=== PATIENT | male | born 1995 | race Caucasian/White ===

== ENCOUNTER 2019-11-11 01:48 | Emergency (ER) | payer BC, OTHER, SELFPAY ==
--- NOTE | 2019-11-11 01:55 | DI.RAD.S_ITS ---
PROCEDURE: XR ELBOW LT MIN 3V INDICATIONS: elbow pain after skateboard crash TECHNIQUE: 3 views of the elbow were acquired. COMPARISON: None. FINDINGS: Bones: Comminuted fracture involving the lateral humeral epicondyle and capitellum. Soft tissues: Large joint effusion. No suspicious soft tissue calcifications. IMPRESSION: Comminuted lateral epicondyle/capitellum fracture. Dictated by: Rebeca Agustin MD, PhD on 11/11/2019 at 8:36 Approved by: Rebeca Agustin MD, PhD on 11/11/2019 at 8:40
[2019-11-11 01:56] VITALS: BP 128/78; PULSE 93; RESP 18; TEMP 37.6; O2SAT 100
--- NOTE | 2019-11-11 02:29 | ED_ITS ---
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 He denies any head neck or back pain. He was not wearing a helmet. He has full recall. He complains only of left elbow pain and significant increased pain with range of motion. He denies any numbness, tingling or weakness. He states his tetanus is current. MD complaint: injury to: left and elbow Onset (ago): hour(s) Other injuries: none Handedness: right Place: outdoors Severity: moderate Relieving factors: immobilization Exacerbating factors: movement of extremity Context: direct blow and sports-related injury Associated symptoms: denies other symptoms Related Data Previous Rx's Medication Instructions Recorded hydrocodone-acetaminophen 1 tab PO Q4-6H PRN #20 tab 11/11/19 Allergies Allergy/AdvReac Type Severity Reaction Status Date / Time Sulfa Allergy Intermediate EXTENSIVE Uncoded 07/30/17 11:56 BRUISES OVER BODY Review of Systems Constitutional Constitutional: Denies chills, Denies fatigue, Denies fever(s), Denies frequent falls, Denies lethargy and Denies weakness Eyes Eyes: Denies change in vision, Denies eye discharge, Denies irritation and Denies loss of vision ENT Ears, Nose, Mouth, and Throat: Denies change in voice, Denies dizziness, Denies neck pain, Denies sore throat and Denies throat swelling Cardiovascular Cardiovascular: Denies chest pain, Denies irregular heart rhythm, Denies lightheadedness, Denies palpitations, Denies dyspnea, Denies dyspnea on exertion and Denies orthopnea Respiratory Respiratory: Denies cough, Denies dyspnea, Denies dyspnea on exertion and Denies wheezing Gastrointestinal Gastrointestinal: Denies abdominal pain, Denies change in bowel habits, Denies diarrhea, Denies nausea and Denies vomiting Musculoskeletal Musculoskeletal: Reports arthralgias, Reports joint swelling, Reports limited range of motion, Denies neck pain and Denies numbness Integumentary/Breasts Skin/Breast: Denies pruritus, Denies erythema, Denies rash and Denies wounds Neurologic Neurologic: Denies behavioral changes, Denies confusion, Denies dizziness, Denies frequent falls, Denies loss of vision, Denies numbness and Denies weakness Psychiatric Psychiatric: Denies anxiety, Denies behavioral changes, Denies confusion, Denies depression, Denies homicidal ideation and Denies suicidal ideation Endocrine Endocrine: Denies fatigue, Denies flushing and Denies palpitations Hematologic/Lymphatic Hematologic/Lymphatic: Denies easy bruising Allergic/Immunologic Allergic/Immunologic: Denies urticaria, Denies throat swelling and Denies wheezing Patient History Social History Smoking Status: Never smoker Smoking Status: Never smoker alcohol intake frequency: a few times a month Substance Use Type: does not use Exam Narrative Exam Narrative: GENERAL: [24] year old patient appears stated age. Well- nourished, well-developed patient, in mild distress. GCS 15 HEAD: Atraumatic. Normocephalic. EYES: Pupils equal round and reactive. Extraocular motions intact. No scleral icterus. No injection or drainage. ENT: Nose without bleeding, purulent drainage. Throat without erythema, tonsillar hypertrophy or exudate. Airway patent. NECK: Trachea midline. Non tender CARDIOVASCULAR: Regular rate and rhythm without murmurs, gallops, or rubs. RESPIRATORY: Clear to auscultation. Breath sounds equal bilaterally. No wheezes, rales, or rhonchi. GASTROINTESTINAL: Abdomen soft, non-tender, nondistended. EXTREMITIES: Decreased range of motion secondary to pain of left elbow, closed, isolated and neurovascularly intact. Swelling of the elbow with some overlying abrasion, no lacerations worth repair. BACK: Nontender without deformity or crepitance. No flank tenderness. NEURO: AOx3. SKIN: No rash or erythema of visible areas Initial Vital Signs Initial Vital Signs: Vital Signs Temperature 99.6 F 11/11/19 01:56 Pulse Rate 93 H 11/11/19 01:56 Respiratory Rate 18 11/11/19 01:56 Blood Pressure 128/78 11/11/19 01:56 Pulse Oximetry 100 11/11/19 01:56 Procedures Orthopedic Splinting/Casting Injury #1: Side: left Upper Extremity Injury Location: upper arm Upper Extremity Immobilizer: sling/shoulder immobilizer and posterior splint Post splinting neuro exam: intact Post splinting vascular exam: intact Placed by: Nursing Course Orders Ordered: ED Orders 11/11/19 01:55 XR elbow LT min 3V Stat Discontinued Medications Hydrocodone Bitart/Acetaminophen (Vicodin 5/325 Prepack) 1 bottle MISC SEEINSTR ONE Stop: 11/11/19 02:15 Bacitracin (Bacitracin) 1 applic TOP NOW ONE Stop: 11/11/19 02:33 Consultations Consultation #1: Discussed with on-call orthopedist who is in agreement with posterior long-arm, sling, pain control and follow-up Vital Signs Vital signs: Vital Signs - 8 hr 11/11/19 01:56 Temperature 99.6 F Pulse Rate 93 H Respiratory Rate 18 Blood Pressure 128/78 Pulse Oximetry 100 MDM - Extremity Injury (Upper) Imaging Data Extremity x-ray #1: Attestation: I personally reviewed and interpreted this imaging study as follows: My Impression: Lateral epicondyle fracture with articular involvement, minimal comminution and displacement. Possible nondisplaced radial head fracture Discharge Plan Departure Patient Disposition: Home Clinical Impression: Closed fracture distal humerus, lateral epicondyle Qualifiers: Encounter type: initial encounter Fracture morphology: unspecified fracture morphology Fracture alignment: nondisplaced Laterality: left Qualified Code(s): S42.435A - Nondisplaced fracture (avulsion) of lateral epicondyle of left humerus, initial encounter for closed fracture Instructions: DI for Elbow Fracture Activity Restrictions/Additional Instructions: *You have been diagnosed with [left elbow fracture] *What to do: *Take medications as directed: Prescription sent to [facility] *Follow up with [facility], call for an appointment. Let them know you were seen in the Emergency Department and that we ask that you be seen in follow up *Return to ER if you should have any new, worsening or concerning symptoms Splint Care: Keep splint clean and dry. Elevated affected body part to decrease swelling. OK to use ice pack on the affected body part. Use for 15-20 minutes each time, for 5-6x per day. If you develop worsening pain, numbness, tingling, discoloration of the affected body part, loosen the splint by loosening the PHYLLIS wrap, and either see your doctor for an urgent re-assessment, or return to the Emergency Department. Return to the Emergency Department for any new or worsening symptoms. You have been prescribed narcotic medications. While on these medications you cannot drive or operate heavy machinery. Additionally you cannot sign legal documents or perform any duties such as this. 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 Please understand that we cannot provide further refills of narcotics or controlled substances through the ED and your pain management will need to be through your Primary Care Provider Prescriptions: New hydrocodone-acetaminophen 5-325 mg tablet 1 tab PO Q4-6H PRN (Reason: pain) Qty: 20 RF: 0 Referrals: Karissa Garza MD [Primary Care Provider] - Radha Colby MD [Physician] -
[2019-11-11] MEDS: HYDROCODONE/ACET 5/325 PREPACK 1 BOTTLE MISC (02:38)
[2019-11-11] MEDS: BACITRACIN OINT 0.9 GM PCKT 1 APPLIC TOP (02:38)
[2019-11-11 04:27] VITALS: BP 128/75; PULSE 90; RESP 17; O2SAT 95
== END 2019-11-11 04:52 | disposition home or self-care (01) ==
PROVIDERS: Emergency Provider Emergency Medicine; PCP Pediatrics
DX: S42.435A Nondisplaced fracture (avulsion) of lateral epicondyle of left humerus, initial encounter for closed fracture (principal); V00.131A Fall from skateboard, initial encounter; S42.432A Displaced fracture (avulsion) of lateral epicondyle of left humerus, initial encounter for closed fracture; S52.122A Displaced fracture of head of left radius, initial encounter for closed fracture; S52.022A Displaced fracture of olecranon process without intraarticular extension of left ulna, initial encounter for closed fracture; S42.452A Displaced fracture of lateral condyle of left humerus, initial encounter for closed fracture; X58.XXXA Exposure to other specified factors, initial encounter
CPT/HCPCS: 29105; 73080; 73200; 99283

== ENCOUNTER → 2019-11-11 13:46 | Outpatient (CLI) | payer BC, OTHER, SELFPAY ==
--- NOTE | 2019-11-11 | DI.CT.S_ITS ---
PROCEDURE: CT UE LT WO CON INDICATIONS: Displaced fracture (avulsion) of lateral epicondyl left TECHNIQUE: Noncontrast 1-1.5 mm axial sections were acquired through the elbow joint, with coronal and sagittal reformats. COMPARISON: None. FINDINGS: Image quality: Excellent. Small cortical chip fracture involving the radial head is seen. There is also comminuted intra-articular fracture of the lateral condyle and epicondyle. Small oblique fracture of the olecranon is noted for example image 57/4. There is marked anterior/superior displacement and rotation of the capitellar articular surface. Associated joint effusion. DISH (diffuse idiopathic skeletal hyperostosis) IMPRESSION: Which Severely comminuted , intra-articular distal humeral fracture involving the capitellum and lateral epicondyle. Associated marked anterior superior displacement and rotation of the capitellar articular surface. Intra-articular fracture line extends to the trochlear articular surface. Small chip fracture involving the radial head Small oblique fracture of the proximal olecranon Dictated by: Rafael Ho M.D. on 11/11/2019 at 14:51 Approved by: Rafael Ho M.D. on 11/11/2019 at 14:56
== END ==
PROVIDERS: PCP Family Medicine; Referring Provider Orthopaedic Surgery; Visit Provider Orthopaedic Surgery
DX: S42.432A Displaced fracture (avulsion) of lateral epicondyle of left humerus, initial encounter for closed fracture (principal); S52.122A Displaced fracture of head of left radius, initial encounter for closed fracture; S52.022A Displaced fracture of olecranon process without intraarticular extension of left ulna, initial encounter for closed fracture; S42.452A Displaced fracture of lateral condyle of left humerus, initial encounter for closed fracture; X58.XXXA Exposure to other specified factors, initial encounter
CPT/HCPCS: 73200